=== PATIENT | male | born 1975 | race Caucasian/White ===

== ENCOUNTER 2020-06-01 13:46 | Emergency (ER) | payer OTHER ==
[~2020-06-01] VITALS: Ht 160 cm; Wt 55.8 kg
[2020-06-01] MEDS ORDERED: UNISOM50 MG PO (13:55)
[2020-06-01] MEDS ORDERED: VENLAFAXINE HC150 M1 PO (13:56)
== END 2020-06-01 16:00 | disposition home or self-care (01) ==
LOC: ED 13:46
DX: T18.9XXA Foreign body of alimentary tract, part unspecified, initial encounter (principal); D64.9 Anemia, unspecified; Z87.891 Personal history of nicotine dependence; Z79.899 Other long term (current) drug therapy
CPT/HCPCS: 74018; 99283-25